=== PATIENT | female | born 1960 | race Caucasian/White ===

== ENCOUNTER 2019-10-25 16:18 | Emergency (ER) | payer MEDICAID ==
[~2019-10-25] VITALS: Ht 172.7 cm; Wt 60.5 kg
[2019-10-25] MEDS ORDERED: CYCL-1 PO (17:43)
[2019-10-25] MEDS ORDERED: IBUP-1984 PO (17:43)
[2019-10-25 18:11] VITALS: BP 150/89
== END 2019-10-25 18:12 | disposition home or self-care (01) ==
LOC: ER 16:19
DX: S39.012A Strain of muscle, fascia and tendon of lower back, initial encounter (principal); Z88.5 Allergy status to narcotic agent; Z79.899 Other long term (current) drug therapy; X58.XXXA Exposure to other specified factors, initial encounter; Y93.89 Activity, other specified; Y92.89 Other specified places as the place of occurrence of the external cause; Y99.8 Other external cause status
CPT/HCPCS: 99283

== ENCOUNTER 2022-06-06 09:33 | Day surgery (SDC) | payer MEDICAID ==
[2022-05-30 15:03] LABS: BASOPHILS # (AUTO) 0.1 X10'3 (0-0.2); BASOPHILS % (AUTO) 1.2 % (0-1); EOSINOPHILS # (AUTO) 0.3 X10'3 (0-0.9); EOSINOPHILS % (AUTO) 4.7 % (0-6); LYMPHOCYTES # (AUTO) 2.1 X10'3 (1.1-4.8); LYMPHOCYTES % (AUTO) 34.3 % (21-51); MEAN CORPUSCULAR HEMOGLOBIN 30.5 PG (27.0-31.0); MEAN CORPUSCULAR HGB CONC 33.1 g/dL (33.0-36.5); MEAN CORPUSCULAR VOLUME 92.2 FL (78-98); MEAN PLATELET VOLUME 7.4 FL (7.4-10.4); MONOCYTES % (AUTO) 15.8 % (2-12); NEUTROPHILS # (AUTO) 2.7 X10'3 (1.8-7.7); PRE OP HEMATOCRIT 39.2 % (35.0-45.0); PRE OP PLATELET COUNT 323 X10'3 (140-440); RED BLOOD COUNT 4.25 X10'6 (4.20-5.60)
[2022-05-30 15:12] LABS: PRE OP PROTIME 9.9 SECONDS (9.0-12.0)
[2022-05-30 15:20] LABS: ALBUMIN 3.2 G/DL (3.4-5.0); ALKALINE PHOSPHATASE 109 IU/L (46-116); BLOOD UREA NITROGEN 24 MG/DL (7-18); BUN/CREATININE RATIO 15.9 (6.6-38.0); CALCIUM 8.8 MG/DL (8.5-10.1); CHLORIDE 103 MMOL/L (99-107); CREATININE 1.51 MG/DL (0.40-0.90); PRE OP ALT 35 U/L (30-65); PRE OP ANION GAP 6 (8-16); PRE OP AST 27 U/L (10-37); PRE OP BILIRUB, TOTAL 0.2 MG/DL (0.0-1.0); PRE OP GLUCOSE 85 MG/DL (70-104); PRE OP POTASSIUM 4.5 MMOL/L (3.4-5.1); PRE OP SODIUM 137 MMOL/L (135-145); TOTAL CARBON DIOXIDE 28.5 MMOL/L (24-32); TOTAL PROTEIN 6.5 G/DL (6.4-8.2); eGFR 35 ML/MIN
[~2022-06-06] VITALS: Ht 165.1 cm; Wt 76.0 kg
[2022-06-06] VITALS (14 sets, daily range): BP systolic 102–149; BP diastolic 64–96
[~2022-06-06 09:33] MED LIST: ACET-1008 PO; BUPIVAcaine 0.25% w/Epi /PF 30ml vial ONE; BUPR-344 PO; DICL50GE TOP; LISI20TA28 PO; ceFAZolin inj. 2,000 MG in dextrose 5%-water 100 ML IV ONE; famotidine 20mg tablet PO ONE; methylene blue (5mg/ml) 50mg/10ml ampul IV ONE; ringers solution, lacted 1,000 ML IV SCH
[2022-06-06] MEDS ORDERED: propofol inj 20 ML IV ONE (10:17)
[2022-06-06] MEDS ORDERED: ondansetron/PF 4mg/2ml inj ONE ×2 (10:17→10:32)
[2022-06-06] MEDS ORDERED: midazolam 1 mg/ML 2ml injection ONE (10:17)
[2022-06-06] MEDS ORDERED: FENTANYL CITRATE/PF 50 MCG/1 ML VIAL ONE (10:17)
[2022-06-06] MEDS ORDERED: LIDOcaine 2% (20mg/ml) 5ml vial ONE (10:17)
[2022-06-06] MEDS ORDERED: ePHEDrine 50MG/ML INJ. ONE (10:40)
[2022-06-06] MEDS ORDERED: acetaminophen 1,000mg/100ml IV 100 ML IV ONE (10:42)
[2022-06-06] MEDS ORDERED: ondansetron/PF 4mg/2ml inj IV PRN (10:55)
[2022-06-06] MEDS ORDERED: hydrALAZINE 20mg/ml inj. IV PRN (10:55)
[2022-06-06] MEDS ORDERED: fentaNYL/PF 50MCG/1 ML 2ML syringe IV PRN (10:55)
[2022-06-06] MEDS ORDERED: ringers solution, lacted 1,000 ML IV SCH (10:55)
[2022-06-06] MEDS ORDERED: labetalol 20mg/4ml (5mg/ml) syringe IV PRN (10:55)
[2022-06-06] MEDS ORDERED: morphine 4 MG/ML inj SYRINge IV PRN (10:55)
[2022-06-06] MEDS ORDERED: morphine 2 MG/ML inj. syringe IV PRN (10:55)
--- NOTE | 2022-06-06 12:09 | NUR ---
Received from OR via [facility], accompanied by Anesthesiologist DR SAUCEDO and report given by Anesthesiolgist. PT PRESENT WITH PIV 20G RIGHT WRIST, CHEST DRESSING ON L BREAST CDII WITH FLOWERED CHEST WRAP. VSS. Addendum: 06/06/22 at 1219 by Valerie Ruff RN, RN Amended: Links added.
[2022-06-06] MEDS: fentaNYL/PF 50MCG/1 ML 2ML syringe IV PRN ×4 (12:34→13:22)
[2022-06-06] MEDS ORDERED: HYDROcodone/acetaminophen 5mg/325mg tablet PO ONE (13:30)
--- NOTE | 2022-06-06 13:53 | NUR ---
PT SITTING UP IN BED TALKING ON CELL PHONE.
--- NOTE | 2022-06-06 14:19 | NUR ---
PATIENT A&OX4, DENIES PAIN, V/S WNL, SCD OFF, 20G TO LUE D/C, RIGHT WRIST DRESSING CDI W/ SLING. ICE AND ELEVATED RUE. I HAVE REVIEWED D/C INSTRUCTIONS WITH PATIENT INSTRUCTIONS WITH PATIENT AND THEY HAVE VERBALIZED UNDERSTANDING. PATIENT D/C HOME WITH ALL BELONGINGS AND FAMILY TRANSPORTED PATIENT HOME. Addendum: 06/06/22 at 1426 by Valerie Ruff RN, RN Amended: Links added.
== END 2022-06-06 14:19 | disposition home or self-care (01) ==
LOC: PAS 09:33
PROVIDERS: ATTEND Surgery
DX: C50.912 Malignant neoplasm of unspecified site of left female breast (principal); I12.9 Hypertensive chronic kidney disease with stage 1 through stage 4 chronic kidney disease, or unspecified chronic kidney disease; N18.30 Chronic kidney disease, stage 3 unspecified; F41.8 Other specified anxiety disorders; Z79.899 Other long term (current) drug therapy; Z79.01 Long term (current) use of anticoagulants; Z87.891 Personal history of nicotine dependence; Z88.6 Allergy status to analgesic agent
CPT/HCPCS: 19125; 36415; 38525; 38900; 71046; 80053; 82948; 85025; 85610; 85730; 86885; 86900; 86901; 93005; J0131; J0690; J2250; J2405; J2704; J3010; J3490; J7030; J7060; J7120; Q9968; S0020; Z7506; Z7508; Z7512; A4215; A4615; A4618; A7000

== ENCOUNTER 2022-09-02 01:42 | Emergency (ER) | payer MEDICAID ==
[~2022-09-02] VITALS: Ht 167.6 cm; Wt 79.8 kg
[~2022-09-02 01:42] MED LIST changes: -BUPIVAcaine 0.25% w/Epi /PF 30ml vial ONE; -ceFAZolin inj. 2,000 MG in dextrose 5%-water 100 ML IV ONE; -famotidine 20mg tablet PO ONE; -methylene blue (5mg/ml) 50mg/10ml ampul IV ONE; -ringers solution, lacted 1,000 ML IV SCH
[2022-09-02 02:02] LABS: BASOPHILS # (AUTO) 0.1 X10'3 (0-0.2); BASOPHILS % (AUTO) 0.9 % (0-1); EOSINOPHILS # (AUTO) 0.3 X10'3 (0-0.9); EOSINOPHILS % (AUTO) 3.8 % (0-6); HEMATOCRIT 39.7 % (35.0-45.0); HEMOGLOBIN 13.3 g/dl (12.0-16.0); LYMPHOCYTES # (AUTO) 0.7 X10'3 (1.1-4.8); LYMPHOCYTES % (AUTO) 10.4 % (21-51); MEAN CORPUSCULAR HGB CONC 33.4 g/dL (33.0-36.5); MEAN CORPUSCULAR VOLUME 92.8 FL (78-98); MEAN PLATELET VOLUME 7.2 FL (7.4-10.4); MONOCYTES # (AUTO) 1.4 X10'3 (0-0.9); MONOCYTES % (AUTO) 20.5 % (2-12); NEUTROPHILS # (AUTO) 4.3 X10'3 (1.8-7.7); NEUTROPHILS % (AUTO) 64.4 % (42-75); PLATELET COUNT 258 X10'3 (140-440); RED BLOOD COUNT 4.27 X10'6 (4.20-5.60); RED CELL DISTRIBUTION WIDTH 14.1 % (11.5-14.5); WHITE BLOOD COUNT 6.6 X10'3 (4.5-11.0)
[2022-09-02 02:16] LABS: ALANINE AMINOTRANSFERASE 32 U/L (12-78); ALBUMIN 3.3 G/DL (3.4-5.0); ALBUMIN/GLOBULIN RATIO 0.9 (1.1-1.5); ALKALINE PHOSPHATASE 110 IU/L (46-116); ANION GAP 6 (8-16); ASPARTATE AMINO TRANSFERASE 21 U/L (10-37); BILIRUBIN,TOTAL 0.2 MG/DL (0.1-1.0); BLOOD UREA NITROGEN 48 MG/DL (7-18); CALCIUM 9.8 MG/DL (8.5-10.1); CHLORIDE 104 MMOL/L (99-107); CREATININE 1.78 MG/DL (0.40-0.90); GLUCOSE 103 MG/DL (70-104); POTASSIUM 4.6 MMOL/L (3.5-5.1); SODIUM 140 MMOL/L (135-145); TOTAL CARBON DIOXIDE 29.9 MMOL/L (24-32); TOTAL PROTEIN 6.9 G/DL (6.4-8.2); eGFR 29 ML/MIN
[2022-09-02 02:24] LABS: LIPASE 230 U/L (73-393)
[2022-09-02] MEDS ORDERED: mag hydrox/Alum hydrox/simeth 30ml oral suspension PO ONE (02:50)
[2022-09-02] MEDS ORDERED: ondansetron/PF 4mg/2ml inj IV ONE (02:50)
[2022-09-02] MEDS ORDERED: famotidine/PF 10 mg/ml inj IV ONE (02:50)
[2022-09-02] MEDS ORDERED: normal saline 1000ml 1,000 ML IV ONE (03:00)
--- NOTE | 2022-09-02 04:38 | NUR ---
Patient resting comfortably on gurney, troponins negative.
[2022-09-02 05:27] VITALS: BP 120/73
== END 2022-09-02 05:31 | disposition home or self-care (01) ==
LOC: ER 01:43
DX: R07.9 Chest pain, unspecified (principal); R12 Heartburn; R11.0 Nausea; I10 Essential (primary) hypertension; F32.A Depression, unspecified; Z90.49 Acquired absence of other specified parts of digestive tract; Z98.890 Other specified postprocedural states; Z88.5 Allergy status to narcotic agent; Z79.899 Other long term (current) drug therapy; Z79.1 Long term (current) use of non-steroidal anti-inflammatories (NSAID)
CPT/HCPCS: 36415; 71045; 80053; 83690; 83880; 84484; 85025; 93005; 96361; 96374; 96375; 99285; J2405; J3490; J7030

== ENCOUNTER 2024-02-06 23:34 | Inpatient (IN) | payer MEDICARE, MEDICAID ==
[~2024-02-06] VITALS: Ht 165.1 cm; Wt 65.9 kg
[2024-02-07] VITALS (16 sets, daily range): BP systolic 72–124; BP diastolic 43–85; PULSE 84–107; RESP 12–22; O2SAT 89–97
[2024-02-07 00:30] LABS: BASOPHILS % (AUTO) 0.2 % (0-1); LYMPHOCYTES # (AUTO) 0.6 X10'3 (1.1-4.8); MEAN CORPUSCULAR VOLUME 94.9 FL (78-98)
[2024-02-07 00:31] LABS: EOSINOPHILS % (AUTO) 0.2 % (0-6); HEMATOCRIT 45.6 % (35.0-45.0); HEMOGLOBIN 14.4 g/dl (12.0-16.0); LYMPHOCYTES % (AUTO) 2.9 % (21-51); MEAN CORPUSCULAR HEMOGLOBIN 29.9 PG (27.0-31.0); MEAN CORPUSCULAR HGB CONC 31.5 g/dL (33.0-36.5); MEAN PLATELET VOLUME 7.4 FL (7.4-10.4); MONOCYTES # (AUTO) 1.4 X10'3 (0-0.9); MONOCYTES % (AUTO) 6.5 % (2-12); NEUTROPHILS % (AUTO) 90.2 % (42-75); PLATELET COUNT 319 X10'3 (140-440); RED BLOOD COUNT 4.81 X10'6 (4.20-5.60); RED CELL DISTRIBUTION WIDTH 14.8 % (11.5-14.5)
[2024-02-07] MEDS: normal saline 1000ML IV soln IVB ONE (00:38)
[2024-02-07] MEDS: ondansetron/PF 4mg/2ml inj IV STA (00:39)
[2024-02-07 00:43] LABS: ALBUMIN 3.9 G/DL (3.4-5.0); ANION GAP 14 (8-16); BLOOD UREA NITROGEN 42 MG/DL (7-18); BUN/CREATININE RATIO 14.8 (10.0-20.0); CALCIUM 10.2 MG/DL (8.5-10.1); CHLORIDE 107 MMOL/L (99-107); CREATININE 2.83 MG/DL (0.40-0.90); GLUCOSE 165 MG/DL (70-104); POTASSIUM 5.5 MMOL/L (3.5-5.1); SODIUM 145 MMOL/L (135-145); TOTAL CARBON DIOXIDE 24.1 MMOL/L (24-32); eCRCL 18 ML/MIN; eGFR 17 ML/MIN
[2024-02-07 00:45] LABS: APTT 25 SECONDS (22-32); INR 1.1 INR; PROTHROMBIN TIME 11.4 SECONDS (9.0-12.0)
--- NOTE | 2024-02-07 01:40 | NUR ---
diapers changed while provided straight catheterization; diapers is soiled with feces with blood; the was a bruise noticed at the buttocks; Photo was taken with consent to be attached on patients file
--- NOTE | 2024-02-07 01:45 | NUR ---
patient's SBP remained on the 70's and 80's despite 2 bags of NS; MD provided verbal orders
--- NOTE | 2024-02-07 01:46 | NUR ---
MD GAVE VERBAL ORDER FOR LACTIC AND PROCALCITONIN LABS TO BE DRAWN
[2024-02-07 01:58] LABS: BILIRUBIN,URINE NEGATIVE (Neg); CLARITY,URINE SLIGHTLY CLOUDY (Clear); COLOR,URINE YELLOW (Yellow); GLUCOSE, URINE NEGATIVE (Neg); KETONES,URINE NEGATIVE (Neg); LEUKOCYTE ESTERASE ,URINE NEGATIVE (Neg); NITRITES, URINE NEGATIVE (Neg); OCCULT BLOOD,URINE NEGATIVE (Neg); PROTEIN,URINE TRACE mg/dl (Neg); UROBILINOGEN,URINE 0.2 E.U/dL (0.2-1.0)
[2024-02-07 02:16] LABS: UA COLLECTION TYPE STRAIGHT CATH
[2024-02-07 02:18] LABS: BACTERIA,URINE FEW /HPF (Neg); RBC,URINE 0-2 /HPF (0-2); SQUAMOUS EPITHELIAL CELL,UR MODERATE /LPF (FEW); WBC,URINE 0-4 /HPF (0-4)
[2024-02-07 02:19] LABS: HYALINE CASTS 0-3 /LPF (NEGATIVE); MUCUS STRANDS FEW /LPF (Neg)
[2024-02-07 02:20] LABS: TRANSITIONAL EPI CELLS,URINE FEW /HPF
--- NOTE | 2024-02-07 03:03 | NUR ---
patient had episodes of loose watery stools.. patient accompanied at bathroom for assistance provided diapers and wipes.
[2024-02-07] MEDS ORDERED: piperacillin/tazo 4.5gm/100ml 100 ML IV SCH (03:20)
[2024-02-07] MEDS: piperacillin/tazo 4.5gm/100ml 100 ML IV SCH (03:39)
[2024-02-07] MEDS: normal saline 1000ml 1,000 ML IV ONE (03:43)
[2024-02-07] MEDS: NORepinephrine 8mg/ 250ml NS 250 ML IV SCH (04:16)
[2024-02-07] MEDS: VANCOmycin 1250MG/NS 250ml Bag 250 ML IV SCH (05:02)
--- NOTE | 2024-02-07 05:29 | NUR ---
pt frequently up to bedside commode having small, loose bloody stools. Nurse at bedside. No signs and symptoms of distress at this time.
[2024-02-07] MEDS: ringers solution, lactated 500ml IV solution IV ONE (07:02)
--- NOTE | 2024-02-07 08:57 | NUR ---
CALLED DR. DC TO INFORM HIM THE PT IS BACK ON [facility]
[2024-02-07] MEDS ORDERED: morphine 2 MG/ML inj. syringe IV PRN (09:10)
[2024-02-07] MEDS ORDERED: ondansetron/PF 4mg/2ml inj IV PRN (09:10)
[2024-02-07] MEDS ORDERED: acetaminophen 325mg tablet PO PRN (09:10)
[2024-02-07] MEDS: LidoCAINE 2% Topical Jelly 11mL syringe (UROJET) TOP ONE (09:10)
[2024-02-07] MEDS ORDERED: morphine 4 MG/ML inj SYRINge IV PRN (09:10)
[2024-02-07] MEDS ORDERED: magnesium hydroxide 30ml (MOM) UD suspension PO PRN (09:10)
--- NOTE | 2024-02-07 09:47 | NUR ---
this rn attempted to call report at 0930. nurse, nila is on break and will call back
[2024-02-07] MEDS: ringers solution, lacted 1,000 ML IV SCH (09:58)
[2024-02-07] MEDS: ringers solution, lacted 1,000 ML IV ONE ×2 (11:11→13:50)
--- NOTE | 2024-02-07 11:11 | NUR ---
Received pt. from ED. Pt. assisted to bed from [facility]. Hooked up to bedside monitor. Levo decreased as MAP is 97. MRSA nasal swab obtained. Pt. assisted to BSC. Watery stool noted. Sent sample to lab for CDIFF R/O after consulting charge nurse. Call light within reach.
[2024-02-07] MEDS ORDERED: GABA300C PO (11:23)
[2024-02-07] MEDS ORDERED: SERT-433 PO (11:23)
[2024-02-07] MEDS ORDERED: PANT40TA54 PO (11:23)
[2024-02-07] MEDS ORDERED: BUPR-564 PO (11:23)
[2024-02-07] MEDS ORDERED: ANAS1TAB10 PO (11:23)
--- NOTE | 2024-02-07 12:25 | NUR ---
Dr. Vu notified upon pt's admission to CICU that her Levpohed is infusing per PIV.
[2024-02-07 12:27] LABS: C DIFF ANTIGEN NEGATIVE (NEGATIVE); C DIFF SPECIMEN=DIARRHEA? ACCEPTABLE; C DIFFICILE TOXINS A&B NEGATIVE (Neg)
[2024-02-07] MEDS: metroNIDAZOLE-Flagyl 500mg/NS 100 ML IV SCH (15:48)
[2024-02-07] MEDS: acetaminophen 325mg tablet PO PRN (15:51)
--- NOTE | 2024-02-07 18:16 | NUR ---
Problems reprioritized. Patient report given, questions answered & plan of care reviewed with Sandor PAYTON.
--- NOTE | 2024-02-07 18:17 | NUR ---
Patient in room CICU 2007. I have received report from Alexandria PAYTON and had the opportunity to ask questions and assume patient care.
[2024-02-07] MEDS: famotidine 20mg tablet PO SCH (20:31)
[2024-02-07] MEDS: ciprofloxacin lact 400MG/200ML 200 ML IV SCH (21:10)
--- NOTE | 2024-02-07 21:54 | NUR ---
Problems reprioritized. Patient report given, questions answered & plan of care reviewed with Marcela PAYTON.
--- NOTE | 2024-02-07 21:57 | NUR ---
Patient in room CICU 2007. I have received report from Sandor PAYTON and had the opportunity to ask questions and assume patient care.
[2024-02-08] VITALS (14 sets, daily range): BP systolic 97–127; BP diastolic 47–63; PULSE 92–103; RESP 11–20; TEMP 98.1–98.2; O2SAT 92–97
[2024-02-08 02:18] LABS: BASOPHILS % (AUTO) 0.2 % (0-1); EOSINOPHILS # (AUTO) 0.1 X10'3 (0-0.9); EOSINOPHILS % (AUTO) 0.9 % (0-6); HEMATOCRIT 33.2 % (35.0-45.0); HEMOGLOBIN 10.9 g/dl (12.0-16.0); LYMPHOCYTES # (AUTO) 0.5 X10'3 (1.1-4.8); LYMPHOCYTES % (AUTO) 6.1 % (21-51); MEAN CORPUSCULAR HEMOGLOBIN 30.5 PG (27.0-31.0); MEAN CORPUSCULAR HGB CONC 32.9 g/dL (33.0-36.5); MEAN CORPUSCULAR VOLUME 92.6 FL (78-98); MEAN PLATELET VOLUME 7.9 FL (7.4-10.4); MONOCYTES # (AUTO) 0.8 X10'3 (0-0.9); MONOCYTES % (AUTO) 8.4 % (2-12); NEUTROPHILS # (AUTO) 7.5 X10'3 (1.8-7.7); NEUTROPHILS % (AUTO) 84.4 % (42-75); PLATELET COUNT 223 X10'3 (140-440); RED BLOOD COUNT 3.58 X10'6 (4.20-5.60); RED CELL DISTRIBUTION WIDTH 14.3 % (11.5-14.5); WHITE BLOOD COUNT 8.9 X10'3 (4.5-11.0)
[2024-02-08 02:43] LABS: ALANINE AMINOTRANSFERASE 23 U/L (12-78); ALBUMIN 2.1 G/DL (3.4-5.0); ALBUMIN/GLOBULIN RATIO 0.8 (1.1-1.5); ALKALINE PHOSPHATASE 71 IU/L (46-116); ANION GAP 9 (8-16); ASPARTATE AMINO TRANSFERASE 28 U/L (10-37); BILIRUBIN,TOTAL 0.3 MG/DL (0.1-1.0); BLOOD UREA NITROGEN 30 MG/DL (7-18); BUN/CREATININE RATIO 19.6 (10.0-20.0); CALCIUM 8.4 MG/DL (8.5-10.1); CHLORIDE 108 MMOL/L (99-107); CREATININE 1.53 MG/DL (0.40-0.90); GLUCOSE 118 MG/DL (70-104); MAGNESIUM 1.5 MG/DL (1.5-2.4); PHOSPHORUS 3.1 MG/DL (2.3-4.5); POTASSIUM 4.2 MMOL/L (3.5-5.1); SODIUM 140 MMOL/L (135-145); TOTAL PROTEIN 4.9 G/DL (6.4-8.2); eCRCL 33 ML/MIN; eGFR 34 ML/MIN
--- NOTE | 2024-02-08 04:23 | NUR ---
Upon checking on pt hourly. Pt complained of severe pain to Left AC. Upon assessment nurse found that IV appeared reddened, tender, and infiltrated. Levophed was paused and IV discontinued. Extremity elevated and warm compress applied. 5 RNs made [address] a new PIV on the pt, as the other IV she had is also in the AC and is in poor condition with intermittent leaking. Levophed was continued temporarily in the R side IV to maintain stable BP. Pt is a very hard stick and veins blow easily. Final RN was able to place an ultrasound guided PIV to the L AC. Levophed is now running through that. Addendum: 02/08/24 at 0537 by Marcela Webster RN RN Pt [employer] assessed and intact. No signs of necrosis at or around infiltration site. Circulation intact. No increased reddening to area.
--- NOTE | 2024-02-08 06:16 | NUR ---
Problems reprioritized. Patient report given, questions answered & plan of care reviewed with Alexandria PAYTON.
[2024-02-08] MEDS: enoxaparin 40mg/0.4ml syringe SUBCUT SCH (07:35)
--- NOTE | 2024-02-08 09:25 | NUR ---
Dr. Odell in to see pt. Floor orders received.
--- NOTE | 2024-02-08 10:06 | NUR ---
Initial: Pt admit for lower abdominal pain, severe sepsis due to colitis, and DRE per EMR. Pt started on a full liquid diet with documented 100% intake for first meal. If pt remains on full liquids then would benefit from an ONS to better help meet elevated estimated needs while on full liquids. Three BMs on 02/07 so far today of diarrhea consistency. Will continue to monitor and make recommendations as appropriate. Recommendations: 1.Advance diet as medically appropriate to regular 2.Monitor PO intake and need for ONS 3.Bowel care per MD given diarrhea;consider probiotic for diarrhea 4.Weekly scaled wts Addendum: 02/08/24 at [address] Amended: Links added.
--- NOTE | 2024-02-08 14:56 | NUR ---
pt. transferred to 360B via w/c in stable condition with all belongings after giving report to Roxane Betts and reserve officer present upon pt's arrival in 360[facility]. Call light in reach.
[2024-02-08] MEDS ORDERED: famotidine 20mg tablet PO SCH (15:01)
--- NOTE | 2024-02-08 18:03 | NUR ---
new order to remove fc and rectal tube placed from Selina Rufino [facility]. On coming nurse notified and order put in interventions. patient diet changed from full liquid to a regular diet.
--- NOTE | 2024-02-08 18:40 | NUR ---
Patient in room [facility]. I have received report from Roxane YOUNG and had the opportunity to ask questions and assume patient care.
[2024-02-08] MEDS: normal saline 1000ml 1,000 ML IV SCH (21:35)
[2024-02-09 04:08] LABS: BASOPHILS % (AUTO) 0.5 % (0-1); EOSINOPHILS # (AUTO) 0.2 X10'3 (0-0.9); EOSINOPHILS % (AUTO) 2.6 % (0-6); HEMOGLOBIN 9.9 g/dl (12.0-16.0); LYMPHOCYTES # (AUTO) 0.7 X10'3 (1.1-4.8); LYMPHOCYTES % (AUTO) 10.8 % (21-51); MEAN CORPUSCULAR HEMOGLOBIN 30.7 PG (27.0-31.0); MEAN CORPUSCULAR HGB CONC 33.2 g/dL (33.0-36.5); MEAN CORPUSCULAR VOLUME 92.3 FL (78-98); MEAN PLATELET VOLUME 7.4 FL (7.4-10.4); MONOCYTES # (AUTO) 0.5 X10'3 (0-0.9); MONOCYTES % (AUTO) 7.8 % (2-12); NEUTROPHILS # (AUTO) 5.4 X10'3 (1.8-7.7); NEUTROPHILS % (AUTO) 78.3 % (42-75); PLATELET COUNT 197 X10'3 (140-440); RED BLOOD COUNT 3.25 X10'6 (4.20-5.60); RED CELL DISTRIBUTION WIDTH 14.2 % (11.5-14.5); WHITE BLOOD COUNT 6.9 X10'3 (4.5-11.0)
[2024-02-09 04:21] LABS: ALANINE AMINOTRANSFERASE 22 U/L (12-78); ALBUMIN 2.1 G/DL (3.4-5.0); ALBUMIN/GLOBULIN RATIO 0.7 (1.1-1.5); ALKALINE PHOSPHATASE 75 IU/L (46-116); ANION GAP 7 (8-16); ASPARTATE AMINO TRANSFERASE 24 U/L (10-37); BILIRUBIN,TOTAL 0.2 MG/DL (0.1-1.0); BLOOD UREA NITROGEN 14 MG/DL (7-18); BUN/CREATININE RATIO 13.2 (10.0-20.0); CALCIUM 8.3 MG/DL (8.5-10.1); CHLORIDE 112 MMOL/L (99-107); CREATININE 1.06 MG/DL (0.40-0.90); GLUCOSE 96 MG/DL (70-104); MAGNESIUM 1.5 MG/DL (1.5-2.4); PHOSPHORUS 2.8 MG/DL (2.3-4.5); POTASSIUM 4.1 MMOL/L (3.5-5.1); SODIUM 141 MMOL/L (135-145); TOTAL CARBON DIOXIDE 22.3 MMOL/L (24-32); eCRCL 48 ML/MIN; eGFR 52 ML/MIN
[2024-02-09 06:46] VITALS: BP 111/59; PULSE 80; RESP 12; TEMP 97.7; O2SAT 96
--- NOTE | 2024-02-09 06:50 | NUR ---
Problems reprioritized. Patient report given, questions answered & plan of care reviewed with Roxane YOUNG.
[2024-02-09] MEDS ORDERED: METR-159 PO (10:11)
[2024-02-09] MEDS ORDERED: CIPR500T5 PO (10:11)
--- NOTE | 2024-02-09 10:54 | NUR ---
Reviewed and agree with Roxane YOUNG's assessment
--- NOTE | 2024-02-09 13:47 | NUR ---
patient discharged home all personal belongings left with patient and her . IV removed. all paper work signed and placed in chart.
== END 2024-02-09 11:35 | disposition home or self-care (01) | DRG 871 ==
LOC: ER 23:34 → ED HOLD 02-07 09:12 → CICU 2S 02-07 11:00 → SUR 3N 02-08 15:01
PROVIDERS: ADMIT Internal Medicine Critical Care Medicine; ATTEND Internal Medicine Critical Care Medicine
PROC: BW211ZZ Computerized Tomography (CT Scan) of Abdomen and Pelvis using Low Osmolar Contrast (ICD-10-PCS; principal; 2024-02-07)
DX: A41.9 Sepsis, unspecified organism (principal); N17.0 Acute kidney failure with tubular necrosis; R65.21 Severe sepsis with septic shock; N17.9 Acute kidney failure, unspecified; E87.20 Acidosis, unspecified; A09 Infectious gastroenteritis and colitis, unspecified; F17.210 Nicotine dependence, cigarettes, uncomplicated; I10 Essential (primary) hypertension; F32.A Depression, unspecified; Z85.3 Personal history of malignant neoplasm of breast
CPT/HCPCS: 36415; 71045; 74176; 80048; 80053; 81001; 83605; 83735; 84100; 84145; 85025; 85610; 85730; 86885; 86900; 86901; 87040; 87081; 87324; 87449; 93005; 96361; 96374; 96375; 99291; A6213; A6258; C1758; G0378; J0744; J1650; J2405; J2543; J3370; J3490; J7030; J7120

== ENCOUNTER 2024-03-03 22:18 | Inpatient (IN) | payer MEDICARE, MEDICAID ==
[~2024-03-03] VITALS: Ht 160 cm; Wt 63.6 kg
[~2024-03-03 22:18] MED LIST changes: -ACET-1008 PO; +ANAS1TAB10 PO; -BUPR-344 PO; +BUPR-564 PO; -DICL50GE TOP; +GABA300C PO; +PANT40TA54 PO; +SERT-433 PO
[2024-03-04 00:21] LABS: BASOPHILS # (AUTO) 0.1 X10'3 (0-0.2); BASOPHILS % (AUTO) 1.2 % (0-1); EOSINOPHILS # (AUTO) 0.3 X10'3 (0-0.9); HEMATOCRIT 31.8 % (35.0-45.0); HEMOGLOBIN 10.3 g/dl (12.0-16.0); LYMPHOCYTES # (AUTO) 0.9 X10'3 (1.1-4.8); LYMPHOCYTES % (AUTO) 12.2 % (21-51); MEAN CORPUSCULAR HEMOGLOBIN 30.2 PG (27.0-31.0); MEAN CORPUSCULAR HGB CONC 32.5 g/dL (33.0-36.5); MEAN CORPUSCULAR VOLUME 92.9 FL (78-98); MEAN PLATELET VOLUME 7.4 FL (7.4-10.4); MONOCYTES # (AUTO) 0.9 X10'3 (0-0.9); MONOCYTES % (AUTO) 12.3 % (2-12); NEUTROPHILS # (AUTO) 5.2 X10'3 (1.8-7.7); NEUTROPHILS % (AUTO) 70.3 % (42-75); PLATELET COUNT 306 X10'3 (140-440); RED BLOOD COUNT 3.42 X10'6 (4.20-5.60); WHITE BLOOD COUNT 7.4 X10'3 (4.5-11.0)
[2024-03-04 00:46] LABS: ALANINE AMINOTRANSFERASE 21 U/L (12-78); ALBUMIN 3.4 G/DL (3.4-5.0); ALBUMIN/GLOBULIN RATIO 1.1 (1.1-1.5); ALKALINE PHOSPHATASE 75 IU/L (46-116); ANION GAP 6 (8-16); ASPARTATE AMINO TRANSFERASE 20 U/L (10-37); BILIRUBIN,TOTAL 0.3 MG/DL (0.1-1.0); BLOOD UREA NITROGEN 33 MG/DL (7-18); BUN/CREATININE RATIO 12.9 (10.0-20.0); CALCIUM 8.8 MG/DL (8.5-10.1); CHLORIDE 106 MMOL/L (99-107); CREATININE 2.55 MG/DL (0.40-0.90); GLUCOSE 95 MG/DL (70-104); POTASSIUM 4.7 MMOL/L (3.5-5.1); SODIUM 140 MMOL/L (135-145); TOTAL CARBON DIOXIDE 27.8 MMOL/L (24-32); TOTAL PROTEIN 6.5 G/DL (6.4-8.2); eCRCL 18 ML/MIN; eGFR 19 ML/MIN
[2024-03-04] MEDS ORDERED: potassium Cl 20 mEq SR tablet PO PRN ×2 (03:50)
[2024-03-04] MEDS ORDERED: magnesium sulf-water 2g/50mL 50 ML IV PRN (03:50)
[2024-03-04] MEDS ORDERED: acetaminophen 325mg tablet PO PRN (03:50)
[2024-03-04] MEDS ORDERED: magnesium sulf-water 4G/100mL 100 ML IV PRN (03:50)
[2024-03-04] MEDS ORDERED: magnesium hydroxide 30ml (MOM) UD suspension PO PRN (03:50)
[2024-03-04] MEDS ORDERED: magnesium Cl slow-release 64mg tablet PO PRN (03:50)
[2024-03-04] MEDS ORDERED: potassium Cl 40MEQ/1/2NS 520ml 520 ML IV PRN (03:50)
[2024-03-04] MEDS ORDERED: mag hydrox/Alum hydrox/simeth 30ml oral suspension PO PRN (03:50)
[2024-03-04] MEDS ORDERED: ondansetron/PF 4mg/2ml inj IV PRN (03:50)
[2024-03-04] MEDS ORDERED: normal saline 1000ml 1,000 ML IV SCH (03:50)
[2024-03-04] MEDS: normal saline 1000ml 1,000 ML IV ONE ×3 (04:11→13:33)
[2024-03-04] MEDS: normal saline 1000ml 1,000 ML IV SCH ×2 (05:02→13:33)
[2024-03-04 05:30] LABS: HEMOGLOBIN A1C 5.5 % (4.5-6.2)
[2024-03-04 06:26] LABS: PHOSPHORUS 4.8 MG/DL (2.3-4.5)
[2024-03-04 07:50] LABS: BILIRUBIN,URINE NEGATIVE (Neg); CLARITY,URINE SLIGHTLY CLOUDY (Clear); COLOR,URINE YELLOW (Yellow); GLUCOSE, URINE NEGATIVE (Neg); KETONES,URINE TRACE mg/dl (Neg); LEUKOCYTE ESTERASE ,URINE SMALL (Neg); NITRITES, URINE NEGATIVE (Neg); OCCULT BLOOD,URINE NEGATIVE (Neg); PROTEIN,URINE NEGATIVE (Neg); UROBILINOGEN,URINE 0.2 E.U/dL (0.2-1.0)
[2024-03-04 07:58] LABS: UA COLLECTION TYPE NON-SPECIFIED
[2024-03-04 08:00] LABS: HYALINE CASTS >30 /LPF (NEGATIVE)
[2024-03-04] MEDS: docusate sod 100mg capsule PO SCH (08:00)
[2024-03-04] MEDS: K and/or MAG REPLACEMENT MC SCH (08:00)
[2024-03-04 08:01] LABS: MUCUS STRANDS MANY /LPF (Neg); SQUAMOUS EPITHELIAL CELL,UR MODERATE /LPF (FEW)
[2024-03-04 08:02] LABS: YEAST MANY /HPF (NEGATIVE)
[2024-03-04 08:03] LABS: BACTERIA,URINE 1+ /HPF (Neg); RBC,URINE 0-2 /HPF (0-2)
[2024-03-04 08:27] LABS: URINE AMPHETAMINE SCREEN POSITIVE (Neg); URINE BARBITUATE SCREEN NEGATIVE (Neg); URINE BENZODIAZEPINES SCREEN NEGATIVE (Neg); URINE CANNABINOID SCREEN NEGATIVE (Neg); URINE COCAINE SCREEN NEGATIVE (Neg); URINE METHADONE SCREEN NEGATIVE (Neg); URINE OPIATE SCREEN POSITIVE (Neg); URINE PHENCYCLIDINE SCREEN NEGATIVE (Neg)
[2024-03-04] MEDS: BUPROPION HCL 150MG XL 24 HR 150 MG TAB PO SCH (08:52)
[2024-03-04] MEDS: pantoprazole 40mg Tablet.DR PO SCH (08:53)
[2024-03-04] MEDS: lisinopril 20mg tablet PO SCH (08:53)
[2024-03-04 13:26] LABS: CHOL/HDL RATIO 2.4 (0.00-4.99); CHOLESTEROL 140 MG/DL (0-200); HDL CHOLESTEROL 58 MG/DL (35-60); LDL CHOLESTEROL 67 MG/DL (50-100); TRIGLYCERIDES 37 MG/DL (20-135)
[2024-03-04] MEDS: gabapentin 300mg capsule PO SCH (13:36)
[2024-03-04] MEDS: aspirin 81mg tab.chew PO SCH (13:36)
[2024-03-04] MEDS: clopidogrel 75mg tablet PO SCH (13:37)
[2024-03-04] MEDS: atorvastatin 20mg tablet PO SCH (13:37)
[2024-03-04 19:17] VITALS: BP 155/89; PULSE 75; RESP 17; TEMP 98.1; O2SAT 100
[2024-03-04 19:57] VITALS: BP_SYST 155; BP_SYST 157; BP_SYST 178; BP_DIAS 89; BP_DIAS 92; PULSE 75; PULSE 80; PULSE 83
[2024-03-04 20:00] VITALS: RESP 16; O2SAT 94
[2024-03-04] MEDS: sertraline 50mg tablet PO SCH (20:42)
[2024-03-05] VITALS: BP 145/76; PULSE 81; RESP 16; TEMP 97.6; O2SAT 94
[2024-03-05 04:00] VITALS: BP 144/78; PULSE 70; RESP 15; TEMP 98.5; O2SAT 94
[2024-03-05 06:00] VITALS: BP 145/79; PULSE 75; RESP 16; TEMP 98.4; O2SAT 96
[2024-03-05] MEDS: anastrozole 1 MG tablet PO SCH (07:59)
[2024-03-05 08:05] LABS: BASOPHILS # (AUTO) 0.1 X10'3 (0-0.2); BASOPHILS % (AUTO) 1.4 % (0-1); EOSINOPHILS # (AUTO) 0.5 X10'3 (0-0.9); EOSINOPHILS % (AUTO) 9.7 % (0-6); HEMOGLOBIN 10.1 g/dl (12.0-16.0); LYMPHOCYTES # (AUTO) 0.8 X10'3 (1.1-4.8); LYMPHOCYTES % (AUTO) 15.1 % (21-51); MEAN CORPUSCULAR HGB CONC 32.5 g/dL (33.0-36.5); MEAN CORPUSCULAR VOLUME 92.6 FL (78-98); MEAN PLATELET VOLUME 7.7 FL (7.4-10.4); MONOCYTES # (AUTO) 0.7 X10'3 (0-0.9); MONOCYTES % (AUTO) 12.1 % (2-12); NEUTROPHILS # (AUTO) 3.3 X10'3 (1.8-7.7); NEUTROPHILS % (AUTO) 61.7 % (42-75); PLATELET COUNT 276 X10'3 (140-440); RED BLOOD COUNT 3.35 X10'6 (4.20-5.60); RED CELL DISTRIBUTION WIDTH 14.7 % (11.5-14.5); WHITE BLOOD COUNT 5.4 X10'3 (4.5-11.0)
[2024-03-05 08:21] LABS: CHOL/HDL RATIO 2.5 (0.00-4.99); CHOLESTEROL 137 MG/DL (0-200); HDL CHOLESTEROL 55 MG/DL (35-60); LDL CHOLESTEROL 68 MG/DL (50-100); TRIGLYCERIDES 59 MG/DL (20-135)
[2024-03-05 08:28] LABS: APTT 28 SECONDS (22-32); PROTHROMBIN TIME 10.9 SECONDS (9.0-12.0)
[2024-03-05] MEDS ORDERED: ASPI81TA53 PO (09:42)
[2024-03-05] MEDS ORDERED: ATOR20TA66 PO (09:49)
[2024-03-05 10:00] VITALS: BP 135/68; PULSE 71; RESP 18; TEMP 98.3; O2SAT 98
[2024-03-05 10:51] LABS: ALANINE AMINOTRANSFERASE 17 U/L (12-78); ALBUMIN 2.5 G/DL (3.4-5.0); ALBUMIN/GLOBULIN RATIO 0.9 (1.1-1.5); ALKALINE PHOSPHATASE 62 IU/L (46-116); ANION GAP 8 (8-16); ASPARTATE AMINO TRANSFERASE 18 U/L (10-37); BILIRUBIN,TOTAL 0.2 MG/DL (0.1-1.0); BLOOD UREA NITROGEN 25 MG/DL (7-18); BUN/CREATININE RATIO 20.5 (10.0-20.0); CALCIUM 8.1 MG/DL (8.5-10.1); CHLORIDE 111 MMOL/L (99-107); CREATININE 1.22 MG/DL (0.40-0.90); GLUCOSE 72 MG/DL (70-104); POTASSIUM 4.3 MMOL/L (3.5-5.1); SODIUM 142 MMOL/L (135-145); TOTAL CARBON DIOXIDE 23.2 MMOL/L (24-32); TOTAL PROTEIN 5.3 G/DL (6.4-8.2); eCRCL 38 ML/MIN; eGFR 44 ML/MIN
== END 2024-03-05 12:10 | disposition home or self-care (01) | DRG 917 ==
LOC: ER 22:19 → ED HOLD 03-04 03:49 → ORTHO 4S 03-04 19:00
PROVIDERS: ADMIT Student in an Organized Health Care Education/Training Program; ATTEND Family Medicine
DX: T43.621A Poisoning by amphetamines, accidental (unintentional), initial encounter (principal); N17.0 Acute kidney failure with tubular necrosis; E86.0 Dehydration; R27.0 Ataxia, unspecified; D50.9 Iron deficiency anemia, unspecified; F32.A Depression, unspecified; I10 Essential (primary) hypertension; Z85.3 Personal history of malignant neoplasm of breast; Y92.89 Other specified places as the place of occurrence of the external cause; Z88.5 Allergy status to narcotic agent; Z79.899 Other long term (current) drug therapy
CPT/HCPCS: 36415; 70450; 70544; 70547; 70551; 80053; 80061; 80305; 81001; 82607; 83036; 83735; 84100; 84443; 84484; 85025; 85610; 85651; 85730; 87077; 87081; 87088; 87186; 92508; 92616; 93005; 93306; 99285; G0378; J7030